=== PATIENT | male | born 1970 | race Asian ===

== ENCOUNTER 2021-06-20 17:30 | Emergency (ER) | payer OTHER ==
[~2021-06-20] VITALS: Ht 160 cm; Wt 72.1 kg
[2021-06-20 17:43] VITALS: BP 149/110
--- NOTE | 2021-06-20 19:55 | NUR ---
PT AMBULATED TO BED #4
--- NOTE | 2021-06-20 20:10 | NUR ---
50 Y/O MALE BIB FAMILY, C/O PAIN TO BACK AND WRISTS. PATIENT PRESENTS TO ED WITH MORE DISCOMFORT ON HIS LEFT WRIST, CMS INTACT, SLIGHT SWELLING, NO KO, NO BRUISING OR OBVIOUS DEFORMITY. 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 DENIES N/V/D; SKIN IS PINK/WARM/DRY; AAOX4 WITH EVEN AND STEADY GAIT; PT DENIES ANY FEVER, CP, SOB, OR COUGH AT THIS TIME; PATIENT STATES PAIN OF 5/10 UPON MOVEMENT AT THIS TIME; VSS; PATIENT SITTING ON BED FOR COMFORT; BED DOWN. ER MD MADE AWARE OF PT STATUS. NO PMH, ALLERGIES, OR MEDS
--- NOTE | 2021-06-20 21:09 | NUR ---
PT CLEARED FOR DISCHARGE BY DR. BURGOS. PT ADVISED TO F/U WITH ORTHROPEDICS WITHIN A WEEK. NO RX PROVIDED. PT AMBULATORY TO PERSONAL VEHICLE.
== END 2021-06-20 21:09 | disposition home or self-care (01) ==
LOC: MED 17:30
DX: S52.592A Other fractures of lower end of left radius, initial encounter for closed fracture (principal); S60.221A Contusion of right hand, initial encounter; M54.9 Dorsalgia, unspecified; W10.9XXA Fall (on) (from) unspecified stairs and steps, initial encounter; Y93.01 Activity, walking, marching and hiking; Y92.89 Other specified places as the place of occurrence of the external cause; Y99.0 Civilian activity done for income or pay
CPT/HCPCS: 72100; 73110; 99284